=== PATIENT | female | born 1980 | race African-American/Black ===

== ENCOUNTER → 2018-02-27 | Outpatient (CLI) | payer OTHER ==
[2018-02-27 16:17] LABS: BASO % 0.2 % (0.0-1.0); EOS # 0.1 10^3/uL (0.0-0.50); HEMATOCRIT 35.7 % (36.0-47.0); HEMOGLOBIN 12.6 g/dl (12.0-15.5); LYMPH # 4.1 10^3/uL (1.5-4.5); LYMPH % 32.7 % (24.0-44.0); MEAN CORPUSCULAR HGB CONC 35.3 g/dl (32.0-36.5); MEAN CORPUSCULAR VOLUME 87.7 fl (80.0-96.0); MONO # 0.9 10^3/uL (0.0-0.8); NEUTROPHILS # 7.4 10^3/uL (1.8-7.7); NEUTROPHILS % 58.9 % (36.0-66.0); PLATELET COUNT, AUTOMATED 356 10^3/uL (150-450); RED BLOOD COUNT 4.07 10^6/uL (4.00-5.40); WHITE BLOOD COUNT 12.5 10^3/uL (4.0-10.0)
[2018-02-27 16:39] LABS: CREATININE, SERUM 0.6 MG/DL (0.6-1.0)
[2018-02-27 16:40] LABS: ALT/SGPT 16 U/L (12-78); BILIRUBIN,TOTAL 0.2 MG/DL (0.2-1.0); CREATININE FOR GFR 0.56 MG/DL (0.55-1.30); GLOMERULAR FILTRATION RATE > 60.0 (>60); LDH LACTATE DEHYDROGENASE 101 U/L (84-246); URIC ACID 1.8 MG/DL (2.6-6.0)
[2018-02-27 16:48] LABS: CREATININE CLEARANCE, URINE 159.7 ML/MIN (75-115); TOTAL PROTEIN 24 HOUR URINE 238.5 MG/24HR (50-150); URINE TOTAL PROTEIN 15.9 MG/DL (0-12)
[2018-02-27 17:58] LABS: CHLAMYDIA DNA AMPLIFICATION NEGATIVE (NEGATIVE); GC DNA AMPLIFICATION NEGATIVE (NEGATIVE)
[2018-02-28 10:57] LABS: HEPATITIS B SURFACE ANTIGEN NEGATIVE (NEGATIVE); RUBELLA IgG QUALITATIVE IMMUNE (IMMUNE)
[2018-02-28 11:25] LABS: HEPATITIS C VIRUS ABY INDEX 0.1 INDEX (<0.8)
[2018-02-28 11:26] LABS: HIV 1&2 SCREEN CENTAUR NEGATIVE (NEGATIVE)
== END ==
LOC: M LAB 15:29
PROVIDERS: ATTEND Advanced Practice Midwife
DX: Z36.89 Encounter for other specified antenatal screening (principal)

== ENCOUNTER → 2018-05-01 | Outpatient (CLI) | payer OTHER ==
--- NOTE | 2018-05-01 17:57 | REP ---
Clinical: Anatomical evaluation. Comparison: None . Findings: Examination demonstrates a single live intrauterine in cephalic presentation. motion is identified by technologist. Placenta is noted anterior and grade grade II without evidence for placenta previa or abruption. Amniotic fluid volume is normal. Cervix measures 4.1 cm in length and appears closed. No evidence for nuchal cord. Gestational age by LMP 19 weeks 5 days with OBED 09/20/2018 . Gestational age by current measurements 20 weeks 0 days with OBED 09/18/2018 . FHR equals 144 beats per minute. BPD 4.6 cm 19 weeks 5 days HC 17.3 cm 19 weeks 6 days. AC 14.9 cm 20 weeks 1 day FL 3.2 cm 19 weeks 6 days HL 3.1 cm 20 weeks 2 days HC/AC ratio 1.16 Estimated weight 328 grams ( 59th percentile). Anatomical assessment demonstrates normal structures including cranium, choroid plexus, cavum, cerebellum/posterior fossa, lungs, diaphragm, stomach, cord insertion/three-vessel cord, kidneys/bladder, spine, and extremities. Impression: Single live intrauterine in cephalic presentation demonstrating appropriate interval growth. 2. Limited evaluation of the facial features and heart/ventricular outflow tracts warrant reevaluation and follow-up. Electronically Signed by Angelo Vides MD 05/01/2018 05:50 P
== END ==
LOC: M RAD 11:11
PROVIDERS: ATTEND Advanced Practice Midwife
DX: O09.522 Supervision of elderly multigravida, second trimester (principal); Z3A.19 19 weeks gestation of pregnancy

== ENCOUNTER → 2018-05-28 | Outpatient (CLI) | payer OTHER ==
--- NOTE | 2018-05-29 08:43 | REP ---
Clinical: Anatomical evaluation. Comparison: 05/01/2018 . Findings: Examination demonstrates a single live intrauterine in transverse (head to maternal right) presentation. motion is identified by technologist. Placenta is noted anteriorly and grade0 without evidence for placenta previa or abruption. Amniotic fluid volume is normal. Cervix measures 4.4 cm in length and appears closed. No evidence for nuchal cord. Gestational age by LMP 23 weeks 4 days with OBED 09/20/2018 . Gestational age by current measurements 23 weeks 6 days what with OBED 09/18/2018 FHR equals 153 beats per minute. Estimated weight 625 grams ( 49th percentile). Anatomical assessment demonstrates normal structures including cranium, choroid plexus, cavum, cerebellum/posterior fossa, diaphragm, stomach, cord insertion/three-vessel cord, kidneys/bladder, spine, and extremities. Impression: 1. Single live intrauterine in transverse lie demonstrating appropriate interval growth. 2. Anatomical assessment again demonstrates limited evaluation of the facial features, four-chamber heart/ventricular outflow tracts secondary to lie and body habitus. Electronically Signed by Angelo Vides MD 05/29/2018 08:31 A
== END ==
LOC: M RAD 16:13
PROVIDERS: ATTEND Obstetrics & Gynecology
DX: O09.522 Supervision of elderly multigravida, second trimester (principal)

== ENCOUNTER → 2018-06-24 | Outpatient (CLI) | payer OTHER ==
[2018-06-24 17:59] LABS: HEMATOCRIT 32.6 % (36.0-47.0); HEMOGLOBIN 10.9 g/dl (12.0-15.5); MEAN CORPUSCULAR HEMOGLOBIN 31.2 pg (27.0-33.0); MEAN CORPUSCULAR HGB CONC 33.4 g/dl (32.0-36.5); MEAN CORPUSCULAR VOLUME 93.4 fl (80.0-96.0); PLATELET COUNT, AUTOMATED 401 10^3/uL (150-450); RED BLOOD COUNT 3.49 10^6/uL (4.00-5.40); WHITE BLOOD COUNT 13.7 10^3/uL (4.0-10.0)
== END ==
LOC: M SMT 10:25
PROVIDERS: ATTEND Obstetrics & Gynecology
DX: O09.522 Supervision of elderly multigravida, second trimester (principal); Z3A.00 Weeks of gestation of pregnancy not specified

== ENCOUNTER → 2018-07-01 | Outpatient (CLI) | payer OTHER ==
--- NOTE | 2018-07-01 10:58 | REP ---
Obstetric ultrasound for anatomy follow-up: Comparisons are 05/01/2018 and 05/28/2018. On the comparison study is the four-chamber view of the heart and the cardiac right and left ventricular outflow tracts could not be optimally demonstrated. Additionally, the facial features could not be optimally demonstrated. The anatomy otherwise was previously unremarkable. On the study today the four-chamber view of the heart is adequately demonstrated and is unremarkable. The cardiac right and left ventricular outflow tracts again are suboptimally demonstrated because of position. The facial profile is adequately demonstrated, however the upper lip is suboptimally demonstrated because of position. The remainder of the anatomy previously was unremarkable and is not repeated. There is a single intrauterine gestation in a vertex presentation. There is movement and cardiac activity. The heart rate is 160 beats per minute. The placenta is anterior. There is no placenta previa or abruptio. The placenta is grade 1 - two maturity. The amniotic fluid volume is subjectively normal. The amniotic fluid index is 15.5 (9.3 - 22.9). Gestational Age: By LMP: 28 w 3 d By First US: 28 w 5 d By Today's US: 29 w 0 d Weight: 1348 gm/ 2 lbs, 15 oz Wt% 60 % for 28 w 3 d. S/D ratio 3.5 (2.30-3.30) Resistive Index 0.7 (0.59-0.75 Diastolic Velocity 11.1 (>10 cm/sec) Electronically Signed by Bautista Abarca MD 07/01/2018 10:50 A
== END ==
LOC: M RAD 08:42
PROVIDERS: ATTEND Advanced Practice Midwife
DX: O09.522 Supervision of elderly multigravida, second trimester (principal); Z3A.29 29 weeks gestation of pregnancy

== ENCOUNTER → 2018-08-04 | Outpatient (CLI) | payer OTHER ==
--- NOTE | 2018-08-04 12:28 | REP ---
Third trimester obstetric ultrasound for size, date discrepancy: There is a single intrauterine gestation in a vertex presentation. There is motion and cardiac activity. The heart rate is 144 beats per minute. The placenta is anterior without previa or abruptio and with grade III maturity. The amniotic fluid volume subjectively is normal. The amniotic fluid index is 17.4 (8.2 - 24.6). The cervix 2.7 cm length. Gestational age by today's ultrasound is 33 weeks 5 days/OBED 09/17/2018. Gestational age by the first ultrasound is 33 weeks 4 days/OBED 09/18/2018. Gestational age by LMP is 33 weeks 2 days/OBED 09/20/2018. weight is 2263 grams/4 pounds, 15 ounces. This is the 53rd percentile for 33 weeks 2 days. Umbilical artery Doppler ultrasound: S/D ratio 2.54 (2.30-3.30) Resistive Index 0.61 (0.59-0.75 Diastolic Velocity 17.7 (>10 cm/sec) Electronically Signed by Bautista Abarca MD 08/04/2018 12:19 P
== END ==
LOC: M RAD 08:46
PROVIDERS: ATTEND Advanced Practice Midwife
DX: O26.873 Cervical shortening, third trimester (principal)

== ENCOUNTER → 2018-08-28 | Outpatient (REF) | payer OTHER ==
[~2018-08-28] MED LIST: COLA100C5 PO; IBUP80TA PO; PERCOCET PO; PRENTAB55 PO
== END ==
LOC: M LAB REF 16:57
PROVIDERS: ATTEND Obstetrics & Gynecology
DX: O09.523 Supervision of elderly multigravida, third trimester (principal)

== ENCOUNTER 2018-09-15 05:05 | Inpatient (IN) | payer OTHER ==
[~2018-09-15] VITALS: Ht 162.6 cm; Wt 84.1 kg
[~2018-09-15 05:05] MED LIST changes: -COLA100C5 PO; -IBUP80TA PO; -PERCOCET PO
[2018-09-15] MEDS ORDERED: LR 1,000 ML IV ONE (07:00)
[2018-09-15] MEDS ORDERED: BICITRA 30ML SOLN UDC PO ONE (07:00)
[2018-09-15 07:02] LABS: HEMATOCRIT 30.8 % (36.0-47.0); HEMOGLOBIN 10.5 g/dl (12.0-15.5); MEAN CORPUSCULAR HEMOGLOBIN 31.3 pg (27.0-33.0); MEAN CORPUSCULAR HGB CONC 34.1 g/dl (32.0-36.5); MEAN CORPUSCULAR VOLUME 91.7 fl (80.0-96.0); PLATELET COUNT, AUTOMATED 413 10^3/uL (150-450); RED BLOOD COUNT 3.36 10^6/uL (4.00-5.40); WHITE BLOOD COUNT 12.6 10^3/uL (4.0-10.0)
[2018-09-15] MEDS ORDERED: ONDANSETRON 4MG/2ML VIAL (J2405) As Ordered ONE (07:12)
[2018-09-15] MEDS ORDERED: OXYTOCIN INJ 10 UNITS/ML VIAL (J2590) As Ordered ONE (07:12)
[2018-09-15] MEDS ORDERED: dexameTHASONE 4 MG/ML 1ML VIAL (J1100) As Ordered ONE (07:12)
[2018-09-15] MEDS ORDERED: fentaNYL 100 MCG/2 ML INJECTION (J3010) As Ordered ONE (07:13)
[2018-09-15] MEDS ORDERED: MORPHINE PRES-FREE INJ 10 MG/10 ML VIAL (J2274) As Ordered ONE (07:14)
[2018-09-15] MEDS ORDERED: LR 1,000 ML IV SCH ×2 (07:30→09:15)
[2018-09-15] MEDS ORDERED: NALOXONE INJ 0.4 MG/1 ML VIAL (J2310) IV PRN ×2 (07:43)
[2018-09-15] MEDS ORDERED: ONDANSETRON 4MG/2ML VIAL (J2405) IV PRN ×3 (07:43→09:15)
[2018-09-15] MEDS ORDERED: NALBUPHINE HCL 10 MG/ML AMP (J2300) IV PRN (07:43)
[2018-09-15] MEDS ORDERED: METOCLOPRAMIDE INJ 10MG/2ML VIAL (J2765) IV PRN ×2 (07:43→09:15)
[2018-09-15] MEDS ORDERED: diphenhydrAMINE INJ 50MG/ML VIAL (J1200) IV PRN (07:43)
[2018-09-15] MEDS ORDERED: ePHEDrine SULFATE 25 MG/5 ML(5MG/ML) SYRINGE As Ordered ONE (07:59)
[2018-09-15] MEDS ORDERED: PHENYLephrine HCL 500 MCG/5 ML (100MCG/ML) SYRINGE (J2370) As Ordered ONE (07:59)
--- NOTE | 2018-09-15 08:54 | NUR ---
Operative Note Date of procedure: 09/15/2018 Procedure: Elective repeat low-transverse section Anesthesia: Spinal with Duramorph Preoperative diagnosis: 39+ weeks gestation, history of one prior low transverse section. Declined trial of labor Postoperative diagnosis: Same as preoperative Indication: History of one prior low transverse section Primary surgeon: James Zepeda D.O., Cynthia Mitchell Field Support Technician: Debora Maxwell CNM (essential for surgical site exposure during opening and closure and assistance with delivery) Estimated blood loss:700 ml IV fluids administered: 1500 ml crystalloid Drains: Kang catheter. Urine output: 60 ml data: Apgars 9 and 9. Birthweight 3450g, 7lbs 10oz. Preoperative/prophylactic antibiotics: Ancef 2 g IV (given within 30 minutes prior to surgical start time). Intraoperative findings: Cephalic presentation Specimen(s): none Procedure: The patient was counseled and consented on the risks, benefits, indications and alternatives of the procedure. Informed consent was obtained and placed in the c neal. She was taken to the operating room with an IV running. She was placed on the operating table. Spinal anesthesia was administered without any difficulty and found to be adequate. She was placed in the dorsal supine position with a leftward tilt. Sequential compression devices were placed on the lower extremities. A Kang catheter was placed under sterile conditions. She was sterilely prepped and draped. A surgical timeout was performed per protocol. Spinal anesthesia was again found to be adequate. Using the 10 blade a Pfannenstiel incision was performed. The 10 blade was used to dissect down to the level of the rectus sheath fascia. The rectus sheath fas eliseo was incised at the midline, and the fascial incision was extended with Lyn scissors. Michelle clamps were used to grasp the superior and inferior aspect of the fascial incision and the rectus muscle bellies were dissected off sharply and bluntly. The midline was identified and the rectus muscle bellies were manually . The peritoneum was identified and clamped with hemostats and elevated. The peritoneum was then incised with Metzenbaum scissors. Entry into the intraperitoneal cavity was achieved. The peritoneal opening was extended with manual stretch . There was good visualization of both the bladder and the lower uterine segment. The Mobius retractor was placed. The vesicouterine peritoneum was dissected with Metzenbaum scissors and blunt dissection. Bladder retractor was repositioned. A low transverse uterine incision was made with a new 10 blade. The hysterotomy was extended with manual stretch. The amniotic sac was protruding and then artificially ruptured. Clear amniotic fluid was noted. The baby's head delivered through the hysterotomy with ease. The remainder of the body delivered with ease. The cord was doubly clamped and cut and the baby was handed off to awaiting care. See data above. The placenta was manually removed and noted to be fully intact. The uterus was kept in situ. The intrauterine cavity was cleared of all clot and debris with a laparotomy sponge. The hysterotomy was closed with 0 Vicryl in running, locked fashion. A second imbricating closure was performed over the initial layer closure using 0 Vicryl. The hysterotomy was noted to be hemostatic. The posterior cul-de-sac was irrigated and cleared of all clot and debris. The uterus was replaced back into the abdomen. The paracolic gutters were cleared of all clot and debris with damp laparotomy sponges. The hysterotomy is reinspected and noted to be hemostatic. Sponge, needle and instrument counts were correct. The peritoneum was closed with 3-0 Vicryl in running fashion. The rectus muscle bellies were noted to be hemostatic. The fascia was closed with 0 Vicryl in running fashion. Sponge, needle and instrument counts were again correct. The subcutaneous layer was irrigated. Small subcutaneous bleeders were cauterized with Bovie. The subcutaneous layer was reapproximated with 3-0 Vicryl in running fashion. The skin was closed with 3-0 Monocryl in subcuticular fashion. A bandage was placed over the closed incision. The final sponge, instrument and needle count was correct. She tolerated the entire procedure very well. She was transferred to the PACU in good and stable condition. Dr. James Zepeda D.O., F.A.C.O.G
[2018-09-15] MEDS ORDERED: OXYTOCIN DRIP 30 UNITS in APPROPRIATE DILUENT 1 EA IV SCH (08:57)
[2018-09-15] MEDS ORDERED: RHOGAM 300 MCG (1500 IU) INJ (J2790) IM SCH (09:00)
[2018-09-15] MEDS ORDERED: MEASLES,MUMPS,RUBELLA VACCINE INJ (MMR-II) (90707) SC SCH (09:00)
[2018-09-15] MEDS ORDERED: ACETAMINOPHEN 500 MG TAB PO PRN (09:00)
[2018-09-15] MEDS ORDERED: IBUPROFEN 800 MG TAB PO PRN (09:00)
[2018-09-15] MEDS ORDERED: DIBUCAINE 1% OINTMENT 30GM TOP PRN (09:00)
[2018-09-15] MEDS ORDERED: IBUPROFEN 600 MG TAB PO PRN (09:00)
[2018-09-15] MEDS ORDERED: ACETAMINOPHEN TAB 650MG DOSE (2X325MG) PO PRN (09:00)
[2018-09-15] MEDS ORDERED: PROMETHAZINE 25 MG TAB PO PRN (09:00)
[2018-09-15] MEDS ORDERED: DOCUSATE SODIUM 100 MG CAP PO PRN (09:00)
[2018-09-15] MEDS: PRENATAL VITAMINS CHEWABLE TABLET PO SCH (09:00)
[2018-09-15] MEDS ORDERED: fentaNYL 100 MCG/2 ML INJECTION (J3010) IV PRN (09:15)
[2018-09-15] MEDS ORDERED: MEPERIDINE INJ 25 MG/ML VIAL (J2175) IV PRN (09:15)
[2018-09-15] MEDS ORDERED: PERCOCET 5MG/325MG TAB PO PRN ×2 (09:15→11:30)
[2018-09-15] MEDS ORDERED: IBUP80TA PO (09:21)
[2018-09-15] MEDS ORDERED: PERCOCET PO (09:21)
[2018-09-15] MEDS ORDERED: COLA100C5 PO (09:22)
[2018-09-15] MEDS ORDERED: OXYTOCIN 30 UNITS IN 0.9% NaCl 500ML IV BAG (J2590) As Ordered ONE (10:16)
[2018-09-15 11:10] VITALS: BP 97/54
[2018-09-15] MEDS: LR 1,000 ML IV SCH ×2 (11:32→16:06)
[2018-09-15 11:50] VITALS: BP 96/55
[2018-09-15 12:50] VITALS: BP 103/58
[2018-09-15 14:00] VITALS: BP 101/59
[2018-09-15] MEDS: KETOROLAC 30 MG/ML VIAL (J1885) IV SCH ×2 (15:14→21:06)
[2018-09-15 18:00] VITALS: BP 103/52
[2018-09-15 22:28] VITALS: BP 84/52
[2018-09-16] VITALS (7 sets, daily range): BP systolic 98–115; BP diastolic 52–62
[2018-09-16] MEDS: LR 1,000 ML IV SCH (00:34)
[2018-09-16] MEDS: KETOROLAC 30 MG/ML VIAL (J1885) IV SCH (02:25)
[2018-09-16 07:03] LABS: HEMATOCRIT 25.3 % (36.0-47.0); HEMOGLOBIN 8.6 g/dl (12.0-15.5); MEAN CORPUSCULAR HEMOGLOBIN 31.4 pg (27.0-33.0); MEAN CORPUSCULAR VOLUME 92.3 fl (80.0-96.0); PLATELET COUNT, AUTOMATED 339 10^3/uL (150-450); RED BLOOD COUNT 2.74 10^6/uL (4.00-5.40); WHITE BLOOD COUNT 14.4 10^3/uL (4.0-10.0)
[2018-09-16] MEDS: PRENATAL VITAMINS CHEWABLE TABLET PO SCH (07:51)
[2018-09-16] MEDS: PERCOCET 5MG/325MG TAB PO PRN ×4 (07:52→23:28)
[2018-09-16] MEDS ORDERED: IBUPROFEN 600 MG TAB PO PRN (11:00)
[2018-09-16] MEDS ORDERED: IBUPROFEN 800 MG TAB PO PRN (11:00)
[2018-09-17 02:00] VITALS: BP 114/58
[2018-09-17] MEDS: PERCOCET 5MG/325MG TAB PO PRN ×2 (05:10→10:30)
[2018-09-17] MEDS: PRENATAL VITAMINS CHEWABLE TABLET PO SCH (10:30)
== END 2018-09-17 10:50 | disposition home or self-care (01) | DRG 540 ==
LOC: M LDI 05:05 → M OBS 11:25
PROVIDERS: ADMIT Obstetrics & Gynecology; ATTEND Obstetrics & Gynecology
PROC: 10D00Z1 Extraction of Products of Conception, Low, Open Approach (ICD-10-PCS; principal; 2018-09-15 07:30)
DX: O34.211 Maternal care for low transverse scar from previous cesarean delivery (principal); O99.334 Smoking (tobacco) complicating childbirth; F17.210 Nicotine dependence, cigarettes, uncomplicated; Z3A.39 39 weeks gestation of pregnancy; Z37.0 Single live birth

== ENCOUNTER 2019-02-27 15:28 | Day surgery (SDC) | payer OTHER ==
[~2019-02-27] VITALS: Ht 162.6 cm; Wt 86.0 kg
[~2019-02-27 15:28] MED LIST changes: +COLA100C5 PO; +IBUP80TA PO; +PERCOCET PO
[2019-02-27] MEDS ORDERED: NS 1,000 ML IV ONE (16:00)
[2019-02-27] MEDS ORDERED: ONDANSETRON 4MG/2ML VIAL (J2405) IV ONE (16:00)
[2019-02-27 16:07] LABS: BASO % 0.1 % (0.0-1.0); EOS # 0.1 10^3/uL (0.0-0.5); EOS % 0.4 % (0.0-3.0); HEMOGLOBIN 12.4 g/dl (12.0-15.5); LYMPH # 2.8 10^3/uL (1.5-5.0); LYMPH % 14.9 % (24.0-44.0); MEAN CORPUSCULAR HGB CONC 32.6 g/dl (32.0-36.5); MONO % 5.5 % (0.0-5.0); NEUTROPHILS # 14.7 10^3/uL (1.5-8.5); NEUTROPHILS % 78.4 % (36.0-66.0); PLATELET COUNT, AUTOMATED 344 10^3/uL (150-450); RED BLOOD COUNT 4.27 10^6/uL (4.00-5.40); WHITE BLOOD COUNT 18.7 10^3/uL (4.0-10.0)
[2019-02-27] MEDS: MORPHINE 2 MG/ML 1ML VIAL (J2270) IV PRN ×2 (16:14→16:32)
[2019-02-27] MEDS ORDERED: DOXYCYCLINE HYCLATE 100 MG in D5W MINI-BAG PLUS 100 ML IV ONE (16:15)
--- NOTE | 2019-02-27 16:30 | REP ---
LIMITED TRANSABDOMINAL PELVIC ULTRASOUND: Real-time sonographic evaluation of the pelvis was performed in a limited fashion, this is a portable exam in the emergency department. The uterus is enlarged. It measures 14.3 x 7.1 x 8.0 cm. Endometrium is thickened and somewhat heterogenous measuring 21 mm in maximum AP diameter. A small area of fluid is seen in the fundal endometrium measuring 13 mm. This is of uncertain significance. No intrauterine fetus is visualized transabdominally. No gross adnexal abnormality is seen. Electronically Signed by Bautista Hannon MD 02/28/2019 03:25 P
[2019-02-27 16:55] LABS: ALBUMIN 3.9 GM/DL (3.2-5.2); ALT/SGPT 14 U/L (12-78); BILIRUBIN,DIRECT < 0.1 MG/DL (0.0-0.2); BILIRUBIN,TOTAL 0.2 MG/DL (0.2-1.0); HCG, SERUM QUANTITATIVE 32019 MIU/ML; LIPASE 77 U/L (73-393); TOTAL PROTEIN 7.3 GM/DL (6.4-8.2)
[2019-02-27] MEDS ORDERED: MORPHINE 2 MG/ML 1ML VIAL (J2270) IV PRN (17:15)
[2019-02-27] MEDS ORDERED: MIDAZOLAM INJ 2 MG/2 ML VIAL (J2250) As Ordered ONE (18:00)
[2019-02-27] MEDS ORDERED: METHYLERGONOVINE MALEATE 0.2 MG/ML VIAL (J2210) As Ordered ONE ×2 (18:00→19:00)
[2019-02-27] MEDS ORDERED: LIDOCAINE 1% SDV INJ 30 ML VIAL As Ordered ONE (18:01)
[2019-02-27] MEDS ORDERED: LIDOCAINE 2% INJ 100 MG/5 ML SDV (FOR ANES.) As Ordered ONE (18:01)
[2019-02-27] MEDS ORDERED: fentaNYL 100 MCG/2 ML INJECTION (J3010) As Ordered ONE (18:01)
[2019-02-27] MEDS ORDERED: propofoL 200 MG/20 ML VIAL As Ordered ONE (18:01)
[2019-02-27] MEDS ORDERED: ONDANSETRON 4MG/2ML VIAL (J2405) As Ordered ONE (18:04)
[2019-02-27] MEDS ORDERED: PHENYLephrine HCL 500 MCG/5 ML (100MCG/ML) SYRINGE (J2370) As Ordered ONE (18:30)
[2019-02-27] MEDS ORDERED: dexameTHASONE 4 MG/ML 1ML VIAL (J1100) As Ordered ONE (18:30)
[2019-02-27] MEDS ORDERED: miSOPROStol 200 MCG TAB (S0191) As Ordered ONE (18:44)
[2019-02-27] MEDS ORDERED: ONDANSETRON 4MG/2ML VIAL (J2405) IV PRN ×2 (19:45→20:00)
[2019-02-27] MEDS ORDERED: LR 1,000 ML IV SCH ×2 (19:45→20:00)
[2019-02-27] MEDS ORDERED: METOCLOPRAMIDE INJ 10MG/2ML VIAL (J2765) IV PRN (20:00)
[2019-02-27] MEDS ORDERED: fentaNYL 100 MCG/2 ML INJECTION (J3010) IV PRN (20:00)
[2019-02-27] MEDS ORDERED: PERCOCET 5MG/325MG TAB PO PRN (20:00)
[2019-02-27 20:50] VITALS: BP 113/60
[2019-02-27] MEDS: DOCUSATE SODIUM 100 MG CAP PO SCH (21:00)
[2019-02-27] MEDS ORDERED: IBUPROFEN 800 MG TAB PO PRN (21:00)
[2019-02-27 21:20] VITALS: BP 109/57
[2019-02-27] MEDS: PERCOCET 5MG/325MG TAB PO PRN (21:44)
[2019-02-27 21:50] VITALS: BP 111/64
[2019-02-27 22:50] VITALS: BP 136/69
[2019-02-28 01:09] VITALS: BP 98/57
[2019-02-28 02:09] VITALS: BP 94/52
[2019-02-28 06:09] VITALS: BP 98/54
[2019-02-28 06:59] LABS: HEMATOCRIT 24.4 % (36.0-47.0); MEAN CORPUSCULAR HEMOGLOBIN 29.4 pg (27.0-33.0); MEAN CORPUSCULAR HGB CONC 33.6 g/dl (32.0-36.5); MEAN CORPUSCULAR VOLUME 87.5 fl (80.0-96.0); PLATELET COUNT, AUTOMATED 319 10^3/uL (150-450); RED BLOOD COUNT 2.79 10^6/uL (4.00-5.40); WHITE BLOOD COUNT 16.2 10^3/uL (4.0-10.0)
[2019-02-28 07:08] LABS: HEMOGLOBIN 8.2 g/dl (12.0-15.5)
[2019-02-28] MEDS: PERCOCET 5MG/325MG TAB PO PRN (07:11)
[2019-02-28] MEDS: DOCUSATE SODIUM 100 MG CAP PO SCH (07:51)
[2019-02-28 08:00] VITALS: BP 109/57
[2019-02-28] MEDS ORDERED: IBUP80TA PO (08:30)
--- NOTE | 2019-03-02 08:04 | RO ---
DATE OF PROCEDURE: 02/27/2019 PREPROCEDURE DIAGNOSIS: Incomplete at 11 weeks gestation. POSTPROCEDURE DIAGNOSIS: Incomplete at 11 weeks gestation. PROCEDURE: Dilation, evacuation and curettage. SURGEON: Dr. Russell Allen RELAY TESTER: ANESTHESIA: General endotracheal. ESTIMATED BLOOD LOSS: 1000 mL. URINE OUTPUT: 200 mL. FINDINGS: Moderate amount of products of conception with an intact 11-12 week sized fetus. Moderate uterine atony encountered. DESCRIPTION OF PROCEDURE: The patient taken to the operating room where general endotracheal anesthesia was induced. She was prepped and draped in sterile fashion in the dorsal lithotomy position. The bladder was emptied with a catheter. A speculum was placed in the vagina. The anterior lip of the cervix was grasped with a tenaculum. The cervix was noted to be dilated with products of conception noted at the cervical os. The fetus was removed intact. Placental fragments were removed. A 10 mm suction curette was placed through the internal os. The suction device was activated. The curette was gently rotated with products of conception noted coming from the suction tubing. Sharp curettage was performed. Uterine atony was encountered. The patient received intramuscular Methergine 0.2 mg IM, followed by 800 mcg of Cytotec per rectum. She had a second dose of Methergine IM fifteen minutes after the first dose. She also received IV Pitocin 20 units in one liter of IV fluids. Her uterine tone improved and bleeding subsided. Vital signs were stable throughout the procedure. All instruments were removed. Sponge and instrument counts were correct. The patient went to the recovery room in stable condition.
== END 2019-02-28 10:00 | disposition home or self-care (01) ==
LOC: M ED 15:28 → M SDC 15:29 → M ED 18:09 → M PED 20:50 → M SDC 02-28 10:00
PROVIDERS: ATTEND Specialist
DX: O03.4 Incomplete spontaneous abortion without complication (principal); J45.909 Unspecified asthma, uncomplicated; K86.1 Other chronic pancreatitis; F17.210 Nicotine dependence, cigarettes, uncomplicated
CPT/HCPCS: 36415; 59812; 76801; 80047; 80076; 83690; 84702; 85025; 85027; 86850; 86900; 86901; 87040; 88305; 96361; 96374; 96375; 96376; 99284; J1100; J2210; J2250; J2270; J2370; J2405; J3010

== ENCOUNTER → 2019-10-27 | Outpatient (REF) | payer OTHER ==
[2019-10-27 16:13] LABS: BASO % 0.1 % (0.0-1.0); EOS # 0.2 10^3/uL (0.0-0.5); EOS % 1.3 % (0.0-3.0); HEMATOCRIT 35.7 % (36.0-47.0); HEMOGLOBIN 10.9 g/dl (12.0-15.5); LYMPH # 3.7 10^3/uL (1.5-5.0); LYMPH % 32.5 % (24.0-44.0); MEAN CORPUSCULAR HEMOGLOBIN 25.2 pg (27.0-33.0); MEAN CORPUSCULAR HGB CONC 30.5 g/dl (32.0-36.5); MEAN CORPUSCULAR VOLUME 82.4 fl (80.0-96.0); MONO # 0.9 10^3/uL (0.0-0.8); MONO % 7.5 % (0.0-5.0); NEUTROPHILS # 6.6 10^3/uL (1.5-8.5); NEUTROPHILS % 58.2 % (36.0-66.0); PLATELET COUNT, AUTOMATED 487 10^3/uL (150-450); RED BLOOD COUNT 4.33 10^6/uL (4.00-5.40); WHITE BLOOD COUNT 11.3 10^3/uL (4.0-10.0)
[2019-10-27 17:16] LABS: HEPATITIS C VIRUS ABY INDEX 0.2 INDEX (<0.8); HIV 1&2 SCREEN CENTAUR NEGATIVE (NEGATIVE)
[2019-10-27 18:00] LABS: CHLAMYDIA DNA AMPLIFICATION NEGATIVE (NEGATIVE); GC DNA AMPLIFICATION NEGATIVE (NEGATIVE)
== END ==
LOC: M PLALAB 14:19
PROVIDERS: ATTEND Obstetrics & Gynecology
DX: Z34.81 Encounter for supervision of other normal pregnancy, first trimester (principal); Z3A.00 Weeks of gestation of pregnancy not specified

== ENCOUNTER 2019-11-07 19:27 | Emergency (ER) | payer OTHER ==
[~2019-11-07] VITALS: Ht 162.6 cm; Wt 76.1 kg
--- NOTE | 2019-11-07 22:24 | REPVR ---
PROCEDURE INFORMATION: Exam: XR Right Forearm Exam date and time: 11/07/2019 8:23 PM Age: 39 years old Clinical indication: Pain; Lower or forearm; Right; Additional info: Fall, bony tenderness TECHNIQUE: Imaging protocol: XR Right forearm. Views: 2 views. COMPARISON: No relevant prior studies available. FINDINGS: Bones/joints: Normal. Soft tissues: Mild displacement of the anterior fat pad at the elbow may represent a small elbow joint effusion. IMPRESSION: Mild displacement of the anterior fat pad at the elbow may represent a small elbow joint effusion. No fracture. Electronically signed by: Alex Samaniego On 11/07/2019 22:23:58 PM
[2019-11-07 23:34] VITALS: BP 123/71
--- NOTE | 2019-11-07 23:53 | REPVR ---
PROCEDURE INFORMATION: Exam: US First Trimester, Transabdominal Exam date and time: 11/07/2019 11:14 PM Age: 39 years old Clinical indication: Lmp or gestational age (in weeks): 9 weeks; Antepartum complications; Other: Spotting; ; Additional info: Bleeding in TECHNIQUE: Imaging protocol: Real-time transabdominal obstetrical ultrasound of the maternal pelvis and a first trimester , less than 14 weeks 0 days, with image documentation. COMPARISON: No relevant prior studies available. FINDINGS: Gestation: Single live intrauterine gestation. pole measures 27.6 mm. Embryonic/ heart rate: cardiac activity is detected at 179 bpm. Placenta: Unremarkable. No subchorionic bleed. Amniotic fluid: Amniotic fluid is normal for gestational age. BIOMETRY: Gestational age (AUA): Estimated gestational age is 9 weeks and 4 days. MATERNAL: Uterus: Unremarkable. Cervix: Unremarkable. Right adnexa: Right ovary measures 4.0 x 3.2 x 4.0 cm. Simple appearing cyst involving the right ovary measures 3.2 x 2.6 x 3.0 cm. Left adnexa: Left ovary is not discretely visualized. Intraperitoneal space: No intraperitoneal free fluid. IMPRESSION: Single live intrauterine gestation as above. Electronically signed by: Gil Rivas On 11/07/2019 23:52:49 PM
== END 2019-11-07 23:40 | disposition home or self-care (01) ==
LOC: M ED 19:27
DX: O46.91 Antepartum hemorrhage, unspecified, first trimester (principal); O9A.211 Injury, poisoning and certain other consequences of external causes complicating pregnancy, first trimester; S59.911A Unspecified injury of right forearm, initial encounter; W10.0XXA Fall (on)(from) escalator, initial encounter; Y92.9 Unspecified place or not applicable; Y99.9 Unspecified external cause status; O99.331 Smoking (tobacco) complicating pregnancy, first trimester; Z3A.09 9 weeks gestation of pregnancy

== ENCOUNTER → 2020-01-26 | Outpatient (CLI) | payer OTHER ==
--- NOTE | 2020-01-26 15:00 | REP ---
INDICATION: ANATOMY. COMPARISON: 11/07/2019. TECHNIQUE: Real-time sonographic evaluation of the gravid uterus performed. FINDINGS: Estimated gestational age is20 weeks 5 days, EDC 06/09/2020. Today's measurements indicate appropriate growth. Presentation: Variable Placenta , grade 0, without evidence of placenta previa. The umbilical cord inserts at the margin of the placenta. heart rate is recorded at 139 beats per minute. Amniotic fluid is subjectively normal. Closed cervical length is measured at 3.1 cm. There appear to be 2 anterior fibroids of the uterus, 4.1 x 4.5 x 3.6 cm and 2.8 x 3.4 x 2.4 cm. Biometry chart: BPD: 50 mm, 21 weeks 0 days, 58th percentile. HC: 187 mm, 21 weeks 0 days, 60th percentile AC: 154 mm, 20 weeks 4 days, 48th percentile Femur length: 34 mm, 20 weeks 4 days, 48th percentile HC to AC ratio: 1.21, normal range 1.06-1.24. Estimated weight: 368g, 43rd percentile. anatomy: Cranium: Grossly normal Lateral Ventricles/Choroid Plexus: Grossly normal Posterior Fossa/Cerebellum: Grossly normal Nose/lips/profile: Not well seen due to position. Four chamber heart: Grossly normal Right ventricular outflow tract: Grossly normal Left ventricular outflow tract: Grossly normal Left-sided stomach: Grossly normal Kidneys: There is severe left hydronephrosis with AP diameter of the renal pelvis 14 mm. The right kidney is echogenic which may indicate underlying parenchymal disease. Follow-up recommended. Bladder: Grossly normal Cord Insertion: Grossly normal 3 vessel cord: 2 vessel cord noted. Spine: Not well seen due to position. IMPRESSION: Viable single intrauterine gestation as above. <Electronically signed by Bautista Hannon > 01/26/20 [id number]
== END ==
LOC: M WHC 13:01
PROVIDERS: ATTEND Obstetrics & Gynecology
DX: O34.211 Maternal care for low transverse scar from previous cesarean delivery (principal); Z3A.20 20 weeks gestation of pregnancy

== ENCOUNTER → 2020-03-01 | Outpatient (CLI) | payer OTHER ==
--- NOTE | 2020-03-01 21:05 | REP ---
INDICATION: F/U ANATOMY COMPARISON: 01/26/2020 TECHNIQUE: Transabdominal obstetrical ultrasound with color Doppler evaluation. FINDINGS: Examination demonstrates a single live intrauterine in cephalic presentation. motion is identified by technologist. Placenta is noted posterior and grade 2 without evidence for placenta previa or abruption. Amniotic fluid volume is normal. Cervix measures 3.1 cm in length and appears closed. Two uterine fibroids again identified anteriorly measuring approximately 4.9 x 3.0 x 4.8 cm and 2.7 x 2.2 x 2.2 cm. Gestational age by LMP 25 weeks 5 days with OBED 06/09/2020. Gestational age by current measurements 26 weeks 6 days with OBED 06/01/2020. FHR equals 136 beats per minute. Estimated weight 993 grams (85thpercentile). Anatomical assessment demonstrates normal structures including facial features, nose/lips, four-chamber heart, diaphragm, stomach, abdominal wall, right kidney, bladder and spine. Two vessel cord again noted. Left kidney demonstrates marked, severe hydronephrosis requiring evaluation. The right kidney is normal. Bladder is unremarkable although left hydroureter to the level of the bladder cannot be excluded based on given images. IMPRESSION: Marked asymmetric left renal hydronephrosis and associated associated left hydroureter to the level of the bladder cannot be excluded. Findings require evaluation. Right kidney appears normal. Remainder of the visualized anatomical features in conjunction with prior examination demonstrate otherwise normal anatomical assessment. Two vessel cord again noted. Anterior fibroids again noted <Electronically signed by Angelo Vides > 03/01/20 [id number]
== END ==
LOC: M WHC 13:16
PROVIDERS: ATTEND Advanced Practice Midwife
DX: O09.522 Supervision of elderly multigravida, second trimester (principal); O09.899 Supervision of other high risk pregnancies, unspecified trimester; O35.8XX0 Maternal care for other (suspected) fetal abnormality and damage, not applicable or unspecified; Z3A.26 26 weeks gestation of pregnancy

== ENCOUNTER → 2020-03-01 | Outpatient (CLI) | payer OTHER | LOC: M PLALAB 13:06 | PROVIDERS: ATTEND Advanced Practice Midwife | DX: O09.522 Supervision of elderly multigravida, second trimester (principal); Z3A.00 Weeks of gestation of pregnancy not specified ==

== ENCOUNTER → 2020-03-29 | Outpatient (REF) | payer OTHER ==
[2020-03-29 18:16] LABS: HEMATOCRIT 33.9 % (36.0-47.0); HEMOGLOBIN 11.1 g/dl (12.0-15.5); MEAN CORPUSCULAR HEMOGLOBIN 30.1 pg (27.0-33.0); MEAN CORPUSCULAR HGB CONC 32.7 g/dl (32.0-36.5); MEAN CORPUSCULAR VOLUME 91.9 fl (80.0-96.0); PLATELET COUNT, AUTOMATED 336 10^3/uL (150-450); RED BLOOD COUNT 3.69 10^6/uL (4.00-5.40); WHITE BLOOD COUNT 11.6 10^3/uL (4.0-10.0)
== END ==
LOC: M PLALAB 13:06
PROVIDERS: ATTEND Advanced Practice Midwife
DX: O09.522 Supervision of elderly multigravida, second trimester (principal)

== ENCOUNTER → 2020-04-22 | Outpatient (CLI) | payer OTHER ==
--- NOTE | 2020-04-22 13:46 | REP ---
INDICATION: ELDERLY MULTIGRAVIA,TWO VESSEL UMBILICAL CORD,GROWTH,BEBETO COMPARISON: 03/01/2020 TECHNIQUE: Transabdominal obstetrical ultrasound with color Doppler evaluation. FINDINGS: Examination demonstrates a single live intrauterine in cephalic presentation. motion is identified by technologist. Placenta is noted posterior and grade 3 without evidence for placenta previa or abruption. Amniotic fluid volume is normal. Cervix measures 3.6 cm in length and appears closed. Previously noted maternal fibroids are not visualized on current examination.. BEBETO: 14.1 cm (8.3-24.5) Gestational age by LMP 33 weeks 1 day with OBED 06/09/2020. Gestational age by current measurements 32 weeks 6 days with OBED 06/11/2020. FHR equals 136 beats per minute. BPD: 8.3 cm at 33 weeks 2 days HC: 30.5 cm at 34 weeks 0 days AC: 28.7 cm at 32 weeks 5 days FL: 6.1 cm at 31 weeks 5 days HL: 5.6 cm at 32 weeks 2 days HC/AC: 1.06 Estimated weight 2010 grams (48thpercentile). Anatomical assessment demonstrates known 2 vessel cord along with known severe left renal hydronephrosis. IMPRESSION: 1. Single live advanced gestation in cephalic presentation demonstrating appropriate interval growth. 2. Continued evidence for severe left renal hydronephrosis. 3. 2 vessel cord again noted. 4. Previously identified maternal fibroids are not visualized on current exam. <Electronically signed by Angelo Vides > 04/22/20 [id number]
== END ==
LOC: M WHC 12:34
PROVIDERS: ATTEND Advanced Practice Midwife
DX: O09.523 Supervision of elderly multigravida, third trimester (principal); O09.899 Supervision of other high risk pregnancies, unspecified trimester; Z3A.32 32 weeks gestation of pregnancy

== ENCOUNTER 2020-05-09 16:46 | Outpatient (CLI) | payer OTHER ==
[~2020-05-09] VITALS: Ht 162.6 cm; Wt 87.6 kg
[2020-05-09 16:56] VITALS: BP 132/82
[2020-05-09] MEDS ORDERED: ACETAMINOPHEN 500 MG TAB PO ONE (17:05)
--- NOTE | 2020-05-09 18:09 | IPNPDOC ---
Text Note Date of Service The patient was seen on 05/09/20. NOTE Subjective: Radha is a 40-year-old female who is a with an OBED of 06/09/20 based on a first trimester ultrasound. Her has been complicated by advanced maternal age, 2 prior LTCS, a 2 vessel umbilical cord, and 2 anterior fibroids. She presented to L&D today with complaints of decreased movement. She reported 3-4 movements all day. Radha states that over e last 2 days she has walked back and forth to [facility] twice, the grocery store and around town for things she needs as she states the Medicaid cabs are reporting that they will take 2-3 hours before they can arrive. States they need Form-2014 to be filled out. She also reports pain that is constant on her pubic bone that wraps around to her back and sciatic pain. She states she has not taken anything for her discomfort. After taking Tylenol she reports improvement in her pain. Objective: FHR: 130, moderate variability, positive accelerations, no decelerations. [place]: irregular General: Alert and oriented. Does not appear to be in any distress. Respiratory: Regular rate without use of accessory muscles. Abdomen: gravid. No pain with palpation. Slight discomfort with deep palpation over pubic bone. Bedside US: cephalic presentation, BEBETO: 13.77 cm, posterior placenta. Assessment: IUP at 35.5 weeks gestation, decreased movement, right sciatic pain and right sided mid to upper back pain, normal APFT (Category I FHR) Plan: UA sent to lab. Form-2014 filled out and faxed and copy given to patient. Copy is in chart. Tylenol 1000 mg PO now. Encouraged rest as she likely walked too much. Reviewed comfort measures for sciatica and pubic pain. She has an appointment tomorrow with Dr. Zepeda. Encouraged to keep this appointment. Reviewed access to care, kick count, labor signs and danger signs to report. VS,Fishbone, I+O VS, Fishbone, I+O Vital Signs Date Time Temp Pulse Resp B/P (MAP) Pulse Ox O2 Delivery O2 Flow Rate FiO2 05/09/20 16:56 97.7 99 18 132/82 (99) KAMILLE DIZE CNM May 09, 2020 18:09
[2020-05-09 18:24] LABS: APPEARANCE, URINE CLOUDY (CLEAR); BACTERIA, URINE AUTO 1+ (NEGATIVE); BILIRUBIN, URINE AUTO NEGATIVE (NEGATIVE); BLOOD, URINE BLOOD NEGATIVE (NEGATIVE); COLOR, URINE YELLOW (YELLOW); GLUCOSE, URINE (UA) AUTO NEGATIVE (NEGATIVE); KETONE, URINE AUTO 1+ mg/dL (NEGATIVE); LEUKOCYTE ESTERASE, URINE AUTO NEGATIVE (NEGATIVE); MUCUS, URINE SMALL (NEGATIVE); NITRITE, URINE AUTO NEGATIVE (NEGATIVE); PROTEIN, URINE AUTO 1+ mg/dL (NEGATIVE); RBC, URINE AUTO 4 /HPF (0-3); SPECIFIC GRAVITY URINE AUTO 1.024 (1.002-1.035); SQUAMOUS EPITHELIAL CELL UR AU 16 /HPF (0-6); UROBILINOGEN, URINE AUTO 0.2 mg/dL (0.0-2.0); WBC, URINE AUTO 2 /HPF (0-3)
[2020-05-10] MEDS ORDERED: ACET-897 PO (16:58)
== END 2020-05-09 19:55 | disposition home or self-care (01) ==
LOC: M LDO 16:46
PROVIDERS: ATTEND Advanced Practice Midwife
DX: O36.8130 Decreased fetal movements, third trimester, not applicable or unspecified (principal); Z3A.35 35 weeks gestation of pregnancy; O09.523 Supervision of elderly multigravida, third trimester; O34.211 Maternal care for low transverse scar from previous cesarean delivery; O26.893 Other specified pregnancy related conditions, third trimester; R10.2 Pelvic and perineal pain; M54.31 Sciatica, right side

== ENCOUNTER 2020-05-10 16:26 | Outpatient (CLI) | payer OTHER ==
[~2020-05-10] VITALS: Ht 162.6 cm; Wt 86.4 kg
[2020-05-10 16:40] VITALS: BP 114/67
[2020-05-10] MEDS ORDERED: ACET-897 PO (16:58)
[2020-05-10] MEDS ORDERED: BETAMETHASONE SOLUSPAN 6MG/ML 5ML VIAL (J0702 PER 3MG) IM ONE (17:30)
--- NOTE | 2020-05-10 18:19 | IPNPDOC ---
Text Note Date of Service The patient was seen on 05/10/20. NOTE Subjective: 40-year-old 4 para 2 presents at 35 weeks 0 days estimated gestational age from the office for monitoring and steroids for maturity. She was seen for her scheduled appointment and had a prolonged deceleration. She has been reporting less movement. She is being followed for severe hydronephrosis. She denies any vaginal bleeding leakage of fluids or contractions. O: Vital signs are stable she's afebrile Category 1 heart rate tracing Gen.: Well-appearing no acute distress Abdomen: Gravid nontender Biophysical profile: 8 out of 8, BEBETO 14 cm, severe hydronephrosis once again noted appears to be stable from last u/s ( per radiologist) Assessment: 40-year-old 4 para 2 at 35 weeks with severe hydronephrosis, stable Reassuring status Plan: Patient received her first course of betamethasone. She will return 24 hours for a second shot. She'll continue with antepartum testing. Next appointment is Saturday. Sola Lira MD VS,Ramon I+O VSRamon I+O Vital Signs Date Time Temp Pulse Resp B/P (MAP) Pulse Ox O2 Delivery O2 Flow Rate FiO2 05/10/20 18:08 98.1 70 18 Room Air 05/10/20 16:40 114/67 (83) 99 SOLA LIRA MD. May 10, 2020 18:19
--- NOTE | 2020-05-10 18:43 | REP ---
INDICATION: PREVIOUS C/S/FHR DECEL IN OFFICE/35.5WKS GESTATION. COMPARISON: Comparison sonography April 22, 2020.. TECHNIQUE: Transabdominal obstetric sonography. FINDINGS: Scanning through the gravid uterus demonstrates a viable single intrauterine gestation in a cephalic lie. heart rate is recorded at 124 beats per minute. Amniotic fluid is subjectively normal. A post row fundal placenta is seen grade 3 without evidence of previa. BEBETO is normal at 14.3 cm. Biophysical profile score is 8 out of a possible 8. SD ratio in the umbilical cord artery by Doppler is normal at 1.83. A 2 vessel umbilical cord is noted. Closed cervical length is measured transabdominally at 5.0 cm. Severe hydronephrosis is noted in the left kidney. This was noted previously. IMPRESSION: Viable single intrauterine gestation at 35 weeks 5 days. OBED by prior sonography June 09, 2020. <Electronically signed by Codey Poe > 05/10/20 [id number]
[2020-05-11] MEDS ORDERED: PRENTAB9 PO (17:35)
== END 2020-05-10 18:40 | disposition home or self-care (01) ==
LOC: M LDO 16:26
PROVIDERS: ATTEND Obstetrics & Gynecology
DX: O35.8XX0 Maternal care for other (suspected) fetal abnormality and damage, not applicable or unspecified (principal); Z3A.35 35 weeks gestation of pregnancy; O09.523 Supervision of elderly multigravida, third trimester
CPT/HCPCS: 59025; 76815; 76819; 76820; 96372; J0702

== ENCOUNTER 2020-05-11 17:18 | Outpatient (CLI) | payer OTHER ==
[~2020-05-11] VITALS: Ht 162.6 cm; Wt 87.0 kg
[~2020-05-11 17:18] MED LIST changes: -PRENTAB9 PO
[2020-05-11] MEDS ORDERED: BETAMETHASONE SOLUSPAN 6MG/ML 5ML VIAL (J0702 PER 3MG) IM ONE (17:25)
[2020-05-11 17:33] VITALS: BP 114/64
[2020-05-11] MEDS ORDERED: PRENTAB9 PO (17:35)
[2020-05-11 17:49] VITALS: BP 126/72
[2020-05-11 18:07] VITALS: BP 114/70
== END 2020-05-11 18:23 | disposition home or self-care (01) ==
LOC: M LDO 17:18
PROVIDERS: ATTEND Advanced Practice Midwife
DX: Z29.8 Encounter for other specified prophylactic measures (principal); Z3A.35 35 weeks gestation of pregnancy; Z88.0 Allergy status to penicillin
CPT/HCPCS: 96372; J0702

== ENCOUNTER → 2020-05-11 | Outpatient (REF) | payer OTHER ==
[~2020-05-11] MED LIST changes: +ACET-897 PO; +PRENTAB9 PO
== END ==
LOC: M SFHCWAGY 13:28
PROVIDERS: ATTEND Obstetrics & Gynecology
DX: O34.211 Maternal care for low transverse scar from previous cesarean delivery (principal)

== ENCOUNTER → 2020-05-15 | Outpatient (CLI) | payer OTHER ==
[~2020-05-15] MED LIST changes: +PRENTAB9 PO
== END ==
LOC: M LABSMTC 08:07
PROVIDERS: ATTEND Anesthesiology
DX: Z01.812 Encounter for preprocedural laboratory examination (principal); Z20.828 Contact with and (suspected) exposure to other viral communicable diseases

== ENCOUNTER 2020-05-20 07:26 | Inpatient (IN) | payer OTHER ==
[~2020-05-20] VITALS: Ht 162.6 cm; Wt 112.9 kg
[2020-05-20 07:57] VITALS: BP 121/77
[2020-05-20] MEDS ORDERED: LACTATED RINGER'S 1000 ML IV ONE ×2 (08:05→19:15)
[2020-05-20] MEDS ORDERED: BICITRA 30ML SOLN UDC PO ONE (08:10)
[2020-05-20] MEDS ORDERED: ceFAZolin SOD 2 GM in IV 1 EA IV ONE ×2 (08:10→10:30)
[2020-05-20 08:40] LABS: HEMOGLOBIN 11.8 g/dl (12.0-15.5); MEAN CORPUSCULAR HEMOGLOBIN 30.4 pg (27.0-33.0); MEAN CORPUSCULAR HGB CONC 33.7 g/dl (32.0-36.5); MEAN CORPUSCULAR VOLUME 90.2 fl (80.0-96.0); PLATELET COUNT, AUTOMATED 365 10^3/uL (150-450); RED BLOOD COUNT 3.88 10^6/uL (4.00-5.40); WHITE BLOOD COUNT 10.6 10^3/uL (4.0-10.0)
[2020-05-20] MEDS ORDERED: LR 1,000 ML IV SCH ×2 (09:00→11:00)
[2020-05-20] MEDS ORDERED: CLINDAMYCIN 900 MG in IV 1 EA IV ONE (09:35)
[2020-05-20] MEDS ORDERED: GENTAMICIN 120 MG in D5W 50 ML IV ONE (10:00)
[2020-05-20] MEDS ORDERED: oxyCODONE 5MG TAB PO PRN (11:00)
[2020-05-20] MEDS ORDERED: ONDANSETRON 4MG/2ML VIAL IV PRN ×3 (11:00→15:15)
[2020-05-20] MEDS ORDERED: NALBUPHINE HCL 10 MG/ML AMP (J2300) IV PRN ×2 (11:00→13:31)
[2020-05-20] MEDS ORDERED: MORPHINE PRES-FREE INJ 10 MG/10 ML VIAL (J2274) As Ordered ONE (13:02)
[2020-05-20] MEDS ORDERED: OXYTOCIN INJ 10 UNITS/ML VIAL (J2590) As Ordered ONE (13:02)
[2020-05-20] MEDS ORDERED: METOCLOPRAMIDE INJ 10MG/2ML VIAL (J2765 PER 1) IV PRN (13:31)
[2020-05-20] MEDS ORDERED: NALOXONE INJ 0.4MG/1ML VIAL (J2310 PER 1MG) IV PRN ×2 (13:31)
[2020-05-20] MEDS ORDERED: diphenhydrAMINE 50MG/ML VIAL (J1200) IV PRN (13:31)
[2020-05-20] MEDS ORDERED: PHENYLephrine 500MCG 5ML (100MCG/ML) SYRINGE As Ordered ONE ×2 (13:43→14:14)
[2020-05-20] MEDS ORDERED: ePHEDrine SULFATE 25 MG/5 ML(5MG/ML) SYRINGE As Ordered ONE ×2 (13:43→14:14)
[2020-05-20] MEDS ORDERED: dexameTHASONE 4 MG/ML 1ML VIAL (J1100 PER 1MG) As Ordered ONE (13:57)
[2020-05-20] MEDS ORDERED: ONDANSETRON 4MG/2ML VIAL As Ordered ONE (13:57)
[2020-05-20] MEDS ORDERED: OXYTOCIN 30 UNITS IN 0.9% NaCl 500ML IV BAG (J2590) As Ordered ONE (14:29)
[2020-05-20] MEDS ORDERED: KETOROLAC 60MG 2ML VIAL As Ordered ONE (14:44)
[2020-05-20] MEDS ORDERED: LIDOCAINE 1% SDV 30ML VIAL As Ordered ONE (14:48)
[2020-05-20] MEDS ORDERED: OXYTOCIN DRIP 30 UNITS in IV 1 EA IV SCH (15:12)
[2020-05-20] MEDS ORDERED: ACETAMINOPHEN 500 MG TAB PO PRN (15:15)
[2020-05-20] MEDS ORDERED: MEASLES,MUMPS,RUBELLA VACCINE INJ (MMR-II) (90707) SC SCH (15:15)
[2020-05-20] MEDS ORDERED: RHOGAM 300 MCG (1500 IU) INJ (J2790) IM SCH (15:15)
[2020-05-20] MEDS ORDERED: PERCOCET 5MG/325MG TAB PO PRN (15:15)
[2020-05-20] MEDS ORDERED: SIMETHICONE 80MG CHEW TAB PO PRN (15:15)
--- NOTE | 2020-05-20 15:46 | ROOPDOC ---
[facility] [place] Report Of Operation Report of Operation DATE OF PROCEDURE: 05/20/2020 PREPROCEDURE DIAGNOSES: 1. Severe hydronephrosis with abnormal antepartum testing. 2. 37+ weeks gestation, corticosteroid course completed. 3. History of prior low transverse section 4. Satisfied parity 5. Advanced maternal age 6. Smoking during 7. Left-sided Bartholin's duct cyst, 5-6 cm POSTPROCEDURE DIAGNOSES: Same PROCEDURE: 1. Repeat low transverse section with [place] bilateral tubal ligation. 2. Left Bartholin's duct cyst marsupialization (no evidence of abscess) SURGEON: James Zepeda DO FACOG EXCAVATING CONTRACTOR: Adalgisa Allen MD FACOG (Essential role in retraction, extraction, and c losure of all tissue layers) ANESTHESIA: Spinal / regional ESTIMATED BLOOD LOSS: 500 mL. IV FLUIDS: 1900 mL LR URINE OUTPUT: 50 mL COMPLICATIONS: None. FINDINGS: Significant anterior abdominal wall adhesions involving both the bladder and the lower uterine segment. Subserosal leiomyomas (less than 2cm). Normal bilateral fallopian tubes/ovaries. PREOPERATIVE ANTIBIOTICS: Ancef 2g IV x 1 DATA: Apgars 8 and 9. Birthweight 2800g, 6lbs 3oz. SPECIMENS: right and left fallopian tubal segments. PRIMARY INDICATION FOR : History of prior low transverse section. Satisfied parity. DESCRIPTION OF PROCEDURE: The patient was counseled on the risks, benefits, indications and alternatives of the procedure. Informed consent was obtained. She was taken to the operating room with IV running and placed on the operating table in the dorsal supine position with a leftward tilt. Regional anesthesia was found to be adequate. Sequential compression devices were placed on the lower extremities. A Kang catheter was placed under sterile conditions. She was prepared and draped in normal sterile fashion. A time out was performed per protocol. Regional anesthesia was again found to be adequate. A Pfannenstiel skin incision was made with the 10 blade. The 10 blade was used to dissect down to the level of the rectus sheath fascia. The rectus sheath pressure was incised midline and this was extended bilaterally with Lyn scissors , and manual stretch. The rectus muscle bellies were dissected off the rectus sheath fascia superiorly and inferiorly using both sharp and blunt dissection. The midline was identified. The peritoneum was identified and the cavity entered. The peritoneal opening was extended with manual stretch. The Mobius retractor was placed. The vesicouterine peritoneum was dissected with Metzenbaum scissors to create the bladder flap. A low transverse uterine incision was made with the 10 blade. This was extended with manual stretch. The amniotic sac was punctured, and clear fluid was noted. The baby delivered through the hysterotomy without difficulty. The cord was doubly clamped and cut, and the baby was handed off to awaiting care. data shown above. The placenta was removed manually. The intrauterine cavity was cleared of all clot and debris. The hysterotomy was closed with 0 Vicryl in running locked fashion. This was reinforced with a second imbricating layer using 0 Vicryl in running fashion. Excellent hemostasis of the hysterotomy was noted. The right and left fallopian tubes were followed out to the fimbriated end. A ligation was performed on each fallopian tube using the following technique (Gene): The ampullary portion of each was grasped with a Warrens and elevated. A peritoneal window was created with Bovie along the mesosalpinx. Plain gut suture was used to tie two locations of the fallopian tube at the ends of the created window. The approximate 2-3cm intervening segment of fallopian tube was excised with Metzenbaum scissors. Bovie cautery was used to obliterate the lumen of the fallopian tube on each cut end, and to ensure hemostasis. Excellent hemostasis was noted. The pelvis was irrigated and the fluid suctioned. The Mobius retractor was removed. The peritoneum was closed with 3-0 Vicryl running fashion. The rectus muscle bellies were reapproximated with interrupted stitches using 3-0 Vicryl. The rectus muscles bellies were hemostatic. The rectus sheath fascia was closed with 0 Vicryl running fashion. The subcutaneous layer was irrigated and the fluid suctioned. Small bleeding vessels were cauterized with Bovie. Excellent hemostasis was noted. The subcutaneous layer was reapproximated with 3-0 Vicryl running fashion. Skin was closed with 3-0 Monocryl in subcuticular fashion. An Optifoam bandage was placed over the closed incision. The patient was placed in the high lithotomy position, the pelvis was sterilely prepped and the patient was redraped. The left Bartholin's cyst was identified. I injected 5 mL of 1% lidocaine along the interface between the vagina and vulva at the 5 o'clock position. A 15 blade was used to incise an ellipse along the dome of the cyst. The overlying skin was excised. The cystic wall was then incised with the 15 blade. Fluid was expelled and cultured. The cystic wall was sutured to the vaginal mucosa medially and the vulvar mucosa laterally with several interrupted stitches using 3-0 Vicryl, thus marsupializing the opening of the cystic mass. Minimal bleeding / drainage was noted at the conclusion of the marsupialization. Sponge, needle and instrument counts were correct per protocol throughout the procedure. The patient tolerated each procedure very well. She was transferred to the PACU in stable condition. DO LINNEA Sewell JONATHAN R. DO May 20, 2020 15:46
[2020-05-20] MEDS ORDERED: IBUP80TA PO (15:48)
[2020-05-20] MEDS ORDERED: PERCOCET PO (15:48)
[2020-05-20] MEDS ORDERED: DOK1CAP7 PO (15:48)
[2020-05-20] MEDS ORDERED: fentaNYL 100 MCG/2 ML INJECTION (J3010) As Ordered ONE (16:06)
[2020-05-20] MEDS: fentaNYL 100 MCG/2 ML INJECTION (J3010) IV PRN ×2 (16:08→16:18)
[2020-05-20 18:00] VITALS: BP 101/55
[2020-05-20 18:25] VITALS: BP 94/56
[2020-05-20 18:40] VITALS: BP 103/57
[2020-05-20 19:15] VITALS: BP 101/55
[2020-05-20] MEDS: KETOROLAC 30 MG/ML 1ML VIAL IV SCH (20:48)
[2020-05-20] MEDS: DOCUSATE SODIUM 100MG CAPSULE PO SCH (20:48)
[2020-05-20 22:00] VITALS: BP 96/56
[2020-05-21] MEDS: PERCOCET 5MG/325MG TAB PO PRN ×2 (00:39→22:48)
[2020-05-21 02:00] VITALS: BP 101/51
[2020-05-21] MEDS: KETOROLAC 30 MG/ML 1ML VIAL IV SCH ×2 (03:15→08:10)
[2020-05-21 05:54] VITALS: BP 114/57
--- NOTE | 2020-05-21 07:19 | IPNPDOC ---
Text Note Date of Service The patient was seen on 05/21/20. NOTE PO #1 Feels well. Adequate pain management. OOB independently. Voiding. Tolerating diet VSS, afebrile normotensive CBC pending Breasts soft, nipples intact Fundus firm, NT Dressing intact Lochia rubra scant without odor Legs negative. PO #1 Routine care. Slowly advance diet. VS,Fishbone, I+O VS, Fishbone, I+O Laboratory Tests 05/20/20 08:26 Vital Signs Date Time Temp Pulse Resp B/P (MAP) Pulse Ox O2 Delivery O2 Flow Rate FiO2 05/21/20 05:54 97.2 79 18 114/57 (76) 98 Room Air I&O- Last 24 Hours up to 6 AM 05/21/20 06:00 Intake Total 2900 ml Output Total 1415 ml Balance 1485 ml Erin Lund CNM May 21, 2020 07:19
[2020-05-21 07:57] LABS: HEMATOCRIT 30.6 % (36.0-47.0); HEMOGLOBIN 10.3 g/dl (12.0-15.5); MEAN CORPUSCULAR HEMOGLOBIN 30.8 pg (27.0-33.0); MEAN CORPUSCULAR HGB CONC 33.7 g/dl (32.0-36.5); MEAN CORPUSCULAR VOLUME 91.6 fl (80.0-96.0); PLATELET COUNT, AUTOMATED 320 10^3/uL (150-450); RED BLOOD COUNT 3.34 10^6/uL (4.00-5.40); WHITE BLOOD COUNT 15.4 10^3/uL (4.0-10.0)
[2020-05-21] MEDS: PRENATAL VITAMINS CHEWABLE TABLET PO SCH (08:09)
[2020-05-21] MEDS: DOCUSATE SODIUM 100MG CAPSULE PO SCH ×2 (08:09→20:02)
[2020-05-21 10:00] VITALS: BP 132/72
[2020-05-21 14:00] VITALS: BP 107/55
[2020-05-21] MEDS: IBUPROFEN 800 MG TAB PO SCH (17:18)
[2020-05-21 17:47] VITALS: BP 116/55
[2020-05-21 21:50] VITALS: BP 124/62
[2020-05-22] MEDS: IBUPROFEN 800 MG TAB PO SCH ×3 (00:37→17:01)
[2020-05-22 02:06] VITALS: BP 121/52
[2020-05-22 06:21] VITALS: BP 119/69
[2020-05-22] MEDS: PERCOCET 5MG/325MG TAB PO PRN ×2 (07:54→22:40)
[2020-05-22] MEDS: PRENATAL VITAMINS CHEWABLE TABLET PO SCH (09:06)
[2020-05-22] MEDS: DOCUSATE SODIUM 100MG CAPSULE PO SCH ×2 (09:06→21:03)
--- NOTE | 2020-05-22 09:12 | DS.PDOC ---
Discharge Summary General Date of Admission May 20, 2020 at 07:26 Date of Discharge 05/22/20 Discharge Summary DATE OF ADMISSION: 05/20/2020 DATE OF DISCHARGE: 05/22/2020 ADMISSION DIAGNOSIS:. 1. 37+1 weeks gestation with complete corticosteroid course. 2. Severe hydronephrosis with an abnormal antepartum testing. 3. History of prior low transverse section and satisfied parity. 4. Advanced maternal age. 5. Tobacco use during DISCHARGE DIAGNOSIS:. Same DISCHARGE SUMMARY: The patient was admitted at. 37+1 weeks gestation with the diagnoses listed above. The scheduled section delivery with bilateral tubal ligation was uncomplicated. Her postoperative course was uncomplicated as well. On postoperative day #2, she was meeting all discharge criteria. PHYSICAL EXAMINATION ON DATE OF DISCHARGE: Normotensive. Normal heart rate. Afebrile. HEART: Regular rate and rhythm. No murmurs, gallops, or rubs. LUNGS: Clear to auscultation bilaterally. ABDOMEN: Soft, nontender, nondistended. Incision bandage clean and dry. EXTREMITIES: Nonedematous, nontender. She was meeting all discharge criteria on postoperative day #2. We reviewed routine fever, infectious, pain, and bleeding precautions. She is to followup in 2 weeks for incision check. Her postoperative medications are Percocet, Motrin, and Colace. Vital Signs/I&Os Vital Signs Date Time Temp Pulse Resp B/P (MAP) Pulse Ox O2 Delivery O2 Flow Rate FiO2 05/22/20 07:54 18 Room Air 05/22/20 06:21 97.2 68 119/69 (86) 97 I&O- Last 24 Hours up to 6 AM 05/22/20 06:00 Intake Total 600 ml Balance 600 ml Microbiology Microbiology 05/20/20 Wound Culture, Received Pending Discharge Medications Scheduled Docusate Sodium (Dok) 100 Mg Capsule, 100 MG PO BID Ibuprofen (Ibuprofen) 800 Mg Tablet, 800 MG PO Q8H No.137/Iron/Folic Acd ( Vitamin Tablet) 1 Each Tablet, 1 TAB PO DAILY, (Reported) Scheduled PRN Oxycodone/Acetaminophen (Oxycodone-Acetaminophen 5-325) 1 Each Tablet, 1 TAB PO Q4H PRN for MILD/MODERATE PAIN (PS 1-7) Allergies Coded Allergies: Penicillins (Verified Allergy, Unknown, hives, 09/01/18) NEIDA FELTON DO May 22, 2020 09:12
[2020-05-22 18:00] VITALS: BP 137/62
[2020-05-23] MEDS: IBUPROFEN 800 MG TAB PO SCH ×3 (00:38→17:32)
[2020-05-23 06:00] VITALS: BP 119/59
--- NOTE | 2020-05-23 07:16 | DS.PDOC ---
Discharge Summary General Date of Admission May 20, 2020 at 07:26 Date of Discharge 05/23/20 Discharge Summary DATE OF ADMISSION: 05/20/2020 DATE OF DISCHARGE: 05/23/2020 ADMISSION DIAGNOSIS:. 1. 37+1 weeks gestation with complete corticosteroid course. 2. Severe hydronephrosis with an abnormal antepartum testing. 3. History of prior low transverse section and satisfied parity. 4. Advanced maternal age. 5. Tobacco use during DISCHARGE DIAGNOSIS:. Same DISCHARGE SUMMARY: The patient was admitted at. 37+1 weeks gestation with the diagnoses listed above. The scheduled section delivery with bilateral tubal ligation was uncomplicated. Her postoperative course was uncomplicated as well. On postoperative day #2, she was meeting all discharge criteria. PHYSICAL EXAMINATION ON DATE OF DISCHARGE: Normotensive. Normal heart rate. Afebrile. HEART: Regular rate and rhythm. No murmurs, gallops, or rubs. LUNGS: Clear to auscultation bilaterally. ABDOMEN: Soft, nontender, nondistended. Incision bandage clean and dry. EXTREMITIES: Nonedematous, nontender. She was meeting all discharge criteria on postoperative day #2. We reviewed routine fever, infectious, pain, and bleeding precautions. She is to followup in 2 weeks for incision check. Her postoperative medications are Percocet, Motrin, and Colace. Vital Signs/I&Os Vital Signs Date Time Temp Pulse Resp B/P (MAP) Pulse Ox O2 Delivery O2 Flow Rate FiO2 05/23/20 06:00 97.6 65 18 119/59 (79) 05/22/20 18:00 99 Room Air Microbiology Microbiology 05/20/20 Wound Culture, Received Pending Discharge Medications Scheduled Docusate Sodium (Dok) 100 Mg Capsule, 100 MG PO BID Ibuprofen (Ibuprofen) 800 Mg Tablet, 800 MG PO Q8H No.137/Iron/Folic Acd ( Vitamin Tablet) 1 Each Tablet, 1 TAB PO DAILY, (Reported) Scheduled PRN Oxycodone/Acetaminophen (Oxycodone-Acetaminophen 5-325) 1 Each Tablet, 1 TAB PO Q4H PRN for MILD/MODERATE PAIN (PS 1-7) Allergies Coded Allergies: Penicillins (Verified Allergy, Unknown, hives, 09/01/18) NEIDA FELTON DO May 23, 2020 07:16
[2020-05-23] MEDS: PRENATAL VITAMINS CHEWABLE TABLET PO SCH (09:08)
[2020-05-23] MEDS: DOCUSATE SODIUM 100MG CAPSULE PO SCH (09:08)
== END 2020-05-23 18:00 | disposition home or self-care (01) | DRG 540 ==
LOC: M LDI 07:26 → M OBS 17:43
PROVIDERS: ADMIT Obstetrics & Gynecology; ATTEND Obstetrics & Gynecology
PROC: 0UB70ZZ Excision of Bilateral Fallopian Tubes, Open Approach (ICD-10-PCS; 2020-05-20)
PROC: 0UBG7ZZ Excision of Vagina, Via Natural or Artificial Opening (ICD-10-PCS; 2020-05-20)
PROC: 10D00Z1 Extraction of Products of Conception, Low, Open Approach (ICD-10-PCS; principal; 2020-05-20 09:30)
DX: O34.211 Maternal care for low transverse scar from previous cesarean delivery (principal); D25.2 Subserosal leiomyoma of uterus; Z37.0 Single live birth; Z3A.37 37 weeks gestation of pregnancy; Z88.0 Allergy status to penicillin; Z30.2 Encounter for sterilization; O99.334 Smoking (tobacco) complicating childbirth; O09.523 Supervision of elderly multigravida, third trimester; O34.13 Maternal care for benign tumor of corpus uteri, third trimester; N75.0 Cyst of Bartholin's gland; F17.200 Nicotine dependence, unspecified, uncomplicated; O36.8930 Maternal care for other specified fetal problems, third trimester, not applicable or unspecified

== ENCOUNTER 2021-05-07 05:22 | Inpatient (IN) | payer OTHER ==
[~2021-05-07] VITALS: Ht 162.6 cm; Wt 68.2 kg
[~2021-05-07 05:22] MED LIST changes: +DOK1CAP4 PO
[2021-05-07] MEDS ORDERED: diphenhydrAMINE 50MG/ML VIAL (J1200) IM STA (05:43)
[2021-05-07] MEDS ORDERED: HALOPERIDOL 5MG/ML VIAL (J1630 PER 1) IM STA (05:43)
[2021-05-07] MEDS ORDERED: LORazepam 2 MG/ML VIAL IM STA (05:43)
[2021-05-07 06:30] LABS: HEMATOCRIT 37.4 % (36.0-47.0); HEMOGLOBIN 12.7 g/dl (12.0-15.5); MEAN CORPUSCULAR HEMOGLOBIN 30.1 pg (27.0-33.0); MEAN CORPUSCULAR VOLUME 88.6 fl (80.0-96.0); PLATELET COUNT, AUTOMATED 440 10^3/uL (150-450); RED BLOOD COUNT 4.22 10^6/uL (4.00-5.40); WHITE BLOOD COUNT 14.4 10^3/uL (4.0-10.0)
[2021-05-07] MEDS ORDERED: LAMO100T3 PO ×2 (06:51)
[2021-05-07] MEDS ORDERED: med rec comment (06:51)
[2021-05-07] MEDS ORDERED: PROP20TA72 PO (06:51)
[2021-05-07] MEDS ORDERED: HOME MED LIST COMPLETE! XX SCH (06:55)
[2021-05-07 06:57] LABS: HCG, SERUM QUALITATIVE NEGATIVE (NEGATIVE)
[2021-05-07 07:10] LABS: ACETAMINOPHEN LEVEL < 2.0 UG/ML (10.0-30.0); ALBUMIN 4.7 GM/DL (3.2-5.2); ALT/SGPT 23 U/L (12-78); BILIRUBIN,DIRECT 0.2 MG/DL (0.0-0.2); BILIRUBIN,TOTAL 0.7 MG/DL (0.2-1.0); BLOOD UREA NITROGEN 14 MG/DL (7-18); CALCIUM LEVEL 9.9 MG/DL (8.5-10.1); CARBON DIOXIDE LEVEL 21 MEQ/L (21-32); CHLORIDE LEVEL 109 MEQ/L (98-107); CREATININE FOR GFR 1.04 MG/DL (0.55-1.30); ETHYL ALCOHOL (ETHANOL) < 0.003 % (0.000-0.010); GLOMERULAR FILTRATION RATE > 60.0 (>58); GLUCOSE, FASTING 103 MG/DL (70-100); POTASSIUM SERUM 4.2 MEQ/L (3.5-5.1); SALICYLATE LEVEL 3.2 MG/DL (5.0-30.0); SODIUM LEVEL 140 MEQ/L (136-145); TOTAL PROTEIN 8.4 GM/DL (6.4-8.2)
[2021-05-07 07:39] LABS: RSV AMPLIFICATION NEGATIVE (NEGATIVE)
[2021-05-07 16:16] LABS: AMPHETAMINES LEVEL URINE POSITIVE (NEGATIVE); BARBITURATES URINE NEGATIVE (NEGATIVE); BENZODIAZEPINES URINE NEGATIVE (NEGATIVE); CANNABINOIDS URINE POSITIVE (NEGATIVE); COCAINE METABOLITE URINE NEGATIVE (NEGATIVE); METHADONE URINE NEGATIVE (NEGATIVE); OPIATES URINE NEGATIVE (NEGATIVE); PHENCYCLIDINE URINE NEGATIVE (NEGATIVE)
[2021-05-07] MEDS ORDERED: lamoTRIgine 25MG TAB PO SCH (21:00)
[2021-05-07] MEDS ORDERED: PROPRANOLOL 20 MG TAB PO PRN (21:20)
[2021-05-08] MEDS ORDERED: lamoTRIgine 100MG TAB PO SCH ×2 (09:00→21:00)
[2021-05-08] MEDS ORDERED: MOM 30ML SUSPENSION UDC PO PRN (13:20)
[2021-05-08] MEDS ORDERED: OLANZapine ORAL DISINTEGRATING TAB 5MG PO PRN (13:20)
[2021-05-08] MEDS ORDERED: traZODone 50 MG TAB PO PRN (13:20)
[2021-05-08] MEDS ORDERED: MAALOX 30 ML SUSP *UDC PO PRN (13:20)
[2021-05-08] MEDS ORDERED: ACETAMINOPHEN TAB 650MG DOSE (2X325MG) PO PRN (13:20)
[2021-05-08 17:13] VITALS: BP 136/87
[2021-05-08] MEDS ORDERED: PILL CUTTER 1 EACH XX PRN (21:15)
[2021-05-08] MEDS: PROPRANOLOL 20 MG TAB PO SCH (21:56)
[2021-05-09 06:59] VITALS: BP 99/51
[2021-05-09 08:22] VITALS: BP 99/51
[2021-05-09] MEDS: PROPRANOLOL 20 MG TAB PO SCH (08:22)
[2021-05-09] MEDS: lamoTRIgine 100MG TAB PO SCH (08:22)
[2021-05-09] MEDS: lamoTRIgine 25MG TAB PO SCH (16:51)
[2021-05-09 18:38] VITALS: BP 120/82
[2021-05-10] MEDS: lamoTRIgine 100MG TAB PO SCH (08:49)
[2021-05-10] MEDS: lamoTRIgine 25MG TAB PO SCH (14:24)
[2021-05-10 18:05] VITALS: BP 137/88
[2021-05-11 06:28] VITALS: BP 128/71
[2021-05-11] MEDS: lamoTRIgine 100MG TAB PO SCH (08:18)
[2021-05-11] MEDS: lamoTRIgine 25MG TAB PO SCH (14:07)
[2021-05-11] MEDS ORDERED: BISACODYL 5 MG TAB PO ONE (14:40)
[2021-05-11 18:00] VITALS: BP 126/80
[2021-05-12 06:23] VITALS: BP 127/89
[2021-05-12] MEDS: lamoTRIgine 100MG TAB PO SCH (08:17)
[2021-05-12] MEDS ORDERED: MAGNESIUM CITRATE 300 ML BTL PO ONE (10:00)
[2021-05-12] MEDS: lamoTRIgine 25MG TAB PO SCH (14:50)
[2021-05-12 18:51] VITALS: BP 133/84
[2021-05-13 06:57] VITALS: BP 105/75
[2021-05-13] MEDS: lamoTRIgine 100MG TAB PO SCH (08:20)
[2021-05-13] MEDS: lamoTRIgine 25MG TAB PO SCH (14:22)
[2021-05-14 06:57] VITALS: BP 154/62
[2021-05-14] MEDS: lamoTRIgine 100MG TAB PO SCH (08:20)
[2021-05-14] MEDS: lamoTRIgine 25MG TAB PO SCH (14:09)
[2021-05-14] MEDS ORDERED: MIRALAX *UNIT DOSE* 17GM PACKET PO PRN (16:05)
[2021-05-14 17:11] LABS: HEMOGLOBIN 11.6 g/dl (12.0-15.5); MEAN CORPUSCULAR HEMOGLOBIN 30.1 pg (27.0-33.0); MEAN CORPUSCULAR HGB CONC 33.1 g/dl (32.0-36.5); MEAN CORPUSCULAR VOLUME 90.9 fl (80.0-96.0); PLATELET COUNT, AUTOMATED 396 10^3/uL (150-450); RED BLOOD COUNT 3.85 10^6/uL (4.00-5.40); WHITE BLOOD COUNT 9.1 10^3/uL (4.0-10.0)
[2021-05-14 20:16] VITALS: BP 126/80
[2021-05-14] MEDS: SENOKOT S TAB PO SCH (21:00)
[2021-05-15 06:35] VITALS: BP 122/85
[2021-05-15] MEDS: SENOKOT S TAB PO SCH (08:18)
[2021-05-15] MEDS: lamoTRIgine 100MG TAB PO SCH (08:19)
[2021-05-15] MEDS: lamoTRIgine 25MG TAB PO SCH (13:26)
[2021-05-15] MEDS ORDERED: TRAZ-189 PO (14:03)
[2021-05-15] MEDS ORDERED: LAMI1TAB8 PO (14:03)
[2021-05-15] MEDS ORDERED: traZODone 100 MG TAB PO SCH ×2 (21:00)
[2021-05-15] MEDS ORDERED: lamoTRIgine 25MG TAB PO SCH (21:00)
[2021-05-16] MEDS ORDERED: traZODone 100 MG TAB PO SCH (09:00)
[2021-05-16] MEDS ORDERED: lamoTRIgine 100MG TAB PO SCH ×2 (09:00)
== END 2021-05-15 14:58 | disposition home or self-care (01) | DRG 755 ==
LOC: M ED 05:22 → M ED INP 05-08 13:20 → M PSY 05-08 16:57
PROVIDERS: ADMIT Student in an Organized Health Care Education/Training Program; ATTEND Psychiatry & Neurology Psychiatry
DX: F43.10 Post-traumatic stress disorder, unspecified (principal); F10.10 Alcohol abuse, uncomplicated; F15.90 Other stimulant use, unspecified, uncomplicated; F41.9 Anxiety disorder, unspecified; F32.9 Major depressive disorder, single episode, unspecified; Z88.0 Allergy status to penicillin; D64.9 Anemia, unspecified; F17.210 Nicotine dependence, cigarettes, uncomplicated; F12.90 Cannabis use, unspecified, uncomplicated; Z79.899 Other long term (current) drug therapy

== ENCOUNTER 2021-08-17 20:03 | Emergency (ER) | payer OTHER ==
[~2021-08-17] VITALS: Ht 162.6 cm; Wt 59.1 kg
[~2021-08-17 20:03] MED LIST changes: +LAMI1TAB8 PO; +LAMO100T3 PO; +PROP20TA72 PO; +TRAZ-189 PO; +med rec comment
[2021-08-17 20:04] VITALS: BP 131/86
[2021-08-17] MEDS ORDERED: FLUORESCEIN OPHTH 1 MG STRIP OD ONE (22:00)
[2021-08-17] MEDS ORDERED: PROPARACAINE 0.5% OPHTH SOL 15ML OD ONE (22:00)
== END 2021-08-17 22:39 | disposition left against medical advice (07) ==
LOC: M ED 20:03
DX: Z53.21 Procedure and treatment not carried out due to patient leaving prior to being seen by health care provider (principal)

== ENCOUNTER 2021-11-27 12:46 | Emergency (ER) | payer OTHER, SELFPAY ==
[~2021-11-27] VITALS: Ht 162.6 cm; Wt 68.2 kg
[2021-11-27] MEDS ORDERED: NS 1,000 ML IV ONE (13:20)
[2021-11-27 13:42] LABS: BASO % 0.2 % (0.0-1.0); EOS # 0.2 10^3/uL (0.0-0.5); EOS % 1.4 % (0.0-3.0); HEMATOCRIT 30.1 % (36.0-47.0); HEMOGLOBIN 9.1 g/dl (12.0-15.5); LYMPH # 2.4 10^3/uL (1.5-5.0); MEAN CORPUSCULAR HEMOGLOBIN 24.7 pg (27.0-33.0); MEAN CORPUSCULAR HGB CONC 30.2 g/dl (32.0-36.5); MEAN CORPUSCULAR VOLUME 81.8 fl (80.0-96.0); MONO # 0.8 10^3/uL (0.0-0.8); MONO % 7.3 % (2.0-8.0); NEUTROPHILS # 7.1 10^3/uL (1.5-8.5); NEUTROPHILS % 67.7 % (36.0-66.0); PLATELET COUNT, AUTOMATED 536 10^3/uL (150-450); RED BLOOD COUNT 3.68 10^6/uL (4.00-5.40); WHITE BLOOD COUNT 10.5 10^3/uL (4.0-10.0)
[2021-11-27 14:15] LABS: BLOOD UREA NITROGEN 14 MG/DL (7-18); CALCIUM LEVEL 9.3 MG/DL (8.5-10.1); CARBON DIOXIDE LEVEL 24 MEQ/L (21-32); CHLORIDE LEVEL 106 MEQ/L (98-107); CREATININE FOR GFR 0.87 MG/DL (0.55-1.30); ETHYL ALCOHOL (ETHANOL) < 0.003 % (0.000-0.010); GLOMERULAR FILTRATION RATE > 60.0 (>58); GLUCOSE, FASTING 111 MG/DL (70-100); POTASSIUM SERUM 4.4 MEQ/L (3.5-5.1); SODIUM LEVEL 137 MEQ/L (136-145)
[2021-11-27 14:25] LABS: RSV AMPLIFICATION NEGATIVE (NEGATIVE)
[2021-11-27 17:21] LABS: AMPHETAMINES LEVEL URINE NEGATIVE (NEGATIVE); BARBITURATES URINE NEGATIVE (NEGATIVE); BENZODIAZEPINES URINE NEGATIVE (NEGATIVE); CANNABINOIDS URINE POSITIVE (NEGATIVE); COCAINE METABOLITE URINE POSITIVE (NEGATIVE); METHADONE URINE NEGATIVE (NEGATIVE); OPIATES URINE NEGATIVE (NEGATIVE); PHENCYCLIDINE URINE NEGATIVE (NEGATIVE)
[2021-11-27 18:24] VITALS: BP 109/62
== END 2021-11-27 18:32 | disposition home or self-care (01) ==
LOC: EDBD 12:46 → M ED 12:46
DX: I95.1 Orthostatic hypotension (principal); F19.129 Other psychoactive substance abuse with intoxication, unspecified; F41.9 Anxiety disorder, unspecified; F32.A Depression, unspecified; F43.10 Post-traumatic stress disorder, unspecified; F17.200 Nicotine dependence, unspecified, uncomplicated; F15.10 Other stimulant abuse, uncomplicated; F10.10 Alcohol abuse, uncomplicated; Z88.0 Allergy status to penicillin; Z79.899 Other long term (current) drug therapy

== ENCOUNTER → 2023-09-25 | Outpatient (CLI) | payer OTHER | LOC: M WHC 13:43 | PROVIDERS: ATTEND Physician Assistant Medical | DX: N63.20 Unspecified lump in the left breast, unspecified quadrant (principal) | CPT/HCPCS: 76642; 77066; G0279 ==

== ENCOUNTER 2024-10-02 18:46 | Emergency (ER) | payer MEDICAID, OTHER, SELFPAY ==
[~2024-10-02] VITALS: Ht 162.6 cm; Wt 67.0 kg
[2024-10-02 19:12] LABS: BASO # 0.0 10^3/uL (0.0-0.2); BASO % 0.3 % (0.0-1.0); EOS # 0.0 10^3/uL (0.0-0.5); EOS % 0.6 % (0.0-3.0); LYMPH # 2.6 10^3/uL (1.5-5.0); LYMPH % 40.3 % (24.0-44.0); MONO # 0.7 10^3/uL (0.0-0.8); MONO % 10.1 % (2.0-8.0); NEUTROPHILS # 3.2 10^3/uL (1.5-8.5); NEUTROPHILS % 48.5 % (36.0-66.0); PLATELET COUNT, AUTOMATED 410 10^3/uL (150-450)
[2024-10-02 19:24] LABS: INR 0.92
[2024-10-02 19:27] LABS: ABG BASE EXCESS -4.7 (-2.0-2.0); ABG HCO3 19.8 MMOL/L (22.0-26.0); ABG O2 SATURATION 98.4 % (95.0-99.0); ABG PARTIAL PRESSURE CO2 33.7 mmHg (35.0-45.0); ABG PARTIAL PRESSURE O2 116.9 mmHg (75.0-100.0); ABG STANDARD HCO3 20.6 MMOL/L. (22.0-26.0); ABG TOTAL CO2 20.8 MMOL/L (22.0-29.0); ABG pH (ARTERIAL) 7.386 UNITS (7.350-7.450)
[2024-10-02] MEDS ORDERED: ISOVUE-370 76% 100 ML VIAL As Ordered ONE (19:34)
[2024-10-02] MEDS: NS (Normal Saline) 0.9% 1,000 ML IV ONE (19:39)
[2024-10-02] MEDS: ONDANSETRON 4MG 2ML VIAL IV ONE (19:39)
[2024-10-02] MEDS: MORPHINE 4 MG/ML 1 ML VIAL IV PRN (19:40)
[2024-10-02 19:43] LABS: ETHYL ALCOHOL (ETHANOL) 0.114 % (0.000-0.010)
[2024-10-02 19:53] LABS: ALT/SGPT 36 U/L (7.0-40); AST/SGOT 50 U/L (<34); CALCIUM LEVEL 8.5 MG/DL (8.5-10.1); CARBON DIOXIDE LEVEL 22 MMOL/L (20-31); CHLORIDE LEVEL 107 MMOL/L (98-107); CK-MB VALUE MASS 3.0 NG/ML (<3.6); CREATININE FOR GFR 0.64 MG/DL (0.55-1.30); GLOMERULAR FILTRATION RATE > 90.0 (>58); POTASSIUM SERUM 4.3 MMOL/L (3.5-5.1); SODIUM LEVEL 141 MMOL/L (136-145)
[2024-10-02 19:55] LABS: CPK CREATINE PHOSPHOKINASE 129 U/L (34-145); MB/CK RELATIVE INDEX 2.32 (< OR =4)
[2024-10-02] MEDS: ACETAMINOPHEN *IV* 1,000 MG in IV 1 EA IV ONE (20:41)
[2024-10-02] MEDS: LIDOCAINE W/EPINEPHrine 1% 20 ML VIAL SC ONE (21:40)
[2024-10-02 22:28] LABS: APPEARANCE, URINE CLEAR (CLEAR); BACTERIA, URINE AUTO NEGATIVE (NEGATIVE); BILIRUBIN, URINE AUTO NEGATIVE (NEGATIVE); BLOOD, URINE BLOOD NEGATIVE (NEGATIVE); GLUCOSE, URINE (UA) AUTO NEGATIVE (NEGATIVE); KETONE, URINE AUTO NEGATIVE (NEGATIVE); LEUKOCYTE ESTERASE, URINE AUTO NEGATIVE (NEGATIVE); NITRITE, URINE AUTO NEGATIVE (NEGATIVE); PROTEIN, URINE AUTO NEGATIVE (NEGATIVE); RBC, URINE AUTO 1 /HPF (0-3); SPECIFIC GRAVITY URINE AUTO 1.030 (1.002-1.035); SQUAMOUS EPITHELIAL CELL UR AU 1 /HPF (0-6); UROBILINOGEN, URINE AUTO 0.2 mg/dL (0.0-2.0); WBC, URINE AUTO 0 /HPF (0-3)
[2024-10-02] MEDS: TETANUS/DIPHTH/ACEL. PERTUSSIS 0.5 ML SYR IM ONE (22:49)
[2024-10-02 22:50] LABS: BARBITURATES URINE NEGATIVE (NEGATIVE); BENZODIAZEPINES URINE NEGATIVE (NEGATIVE); METHADONE URINE NEGATIVE (NEGATIVE); PHENCYCLIDINE URINE NEGATIVE (NEGATIVE)
[2024-10-02 22:53] LABS: AMPHETAMINES LEVEL URINE POSITIVE (NEGATIVE); CANNABINOIDS URINE POSITIVE (NEGATIVE); COCAINE METABOLITE URINE POSITIVE (NEGATIVE); OPIATES URINE POSITIVE (NEGATIVE)
[2024-10-02 23:00] VITALS: BP 127/80; TEMP 98.2; O2SAT 99
== END 2024-10-02 23:14 | disposition home or self-care (01) ==
LOC: M ED 18:46 → EDBD 18:46 → M ED 23:14
DX: S01.81XA Laceration without foreign body of other part of head, initial encounter (principal); V03.10XA Pedestrian on foot injured in collision with car, pick-up truck or van in traffic accident, initial encounter; K42.9 Umbilical hernia without obstruction or gangrene; M47.896 Other spondylosis, lumbar region; F17.200 Nicotine dependence, unspecified, uncomplicated; F19.10 Other psychoactive substance abuse, uncomplicated; J45.909 Unspecified asthma, uncomplicated; F41.9 Anxiety disorder, unspecified; F43.10 Post-traumatic stress disorder, unspecified; Z88.0 Allergy status to penicillin; Z79.899 Other long term (current) drug therapy; Y92.411 Interstate highway as the place of occurrence of the external cause; Y93.89 Activity, other specified; Y99.9 Unspecified external cause status; Z23 Encounter for immunization
CPT/HCPCS: 12013; 36600; 70450; 70486; 71045; 71260; 72125; 73030; 73502; 74177; 80047; 80048; 80076; 80307; 81001; 82077; 82150; 82550; 82553; 82803; 83690; 84484; 85025; 85610; 85730; 86850; 86900; 86901; 90471; 90715; 93005; 93041; 94760; 96361; 96365; 96366; 96375; 99285; J0131; J2405; Q9967

== ENCOUNTER 2024-10-09 11:29 | Emergency (ER) | payer SELFPAY ==
[~2024-10-09] VITALS: Ht 162.6 cm; Wt 61.7 kg
[2024-10-09 13:20] VITALS: BP 170/90; TEMP 96.3; O2SAT 98
== END 2024-10-09 13:23 | disposition home or self-care (01) ==
LOC: M ED 11:29
DX: Z48.02 Encounter for removal of sutures (principal)